=== PATIENT | female | born 1945 | race Caucasian/White ===

== ENCOUNTER 2016-10-29 06:06 | Day surgery (SDC) | payer MEDICARE, OTHER ==
[~2016-10-29] VITALS: Ht 165.1 cm; Wt 77.1 kg
[2016-10-29] MEDS ORDERED: ceFAZolin 1GM/50ML D5W 50 ML IV ONE (07:07)
[2016-10-29] MEDS ORDERED: fentaNYL CITRATE 100 MCG/2 ML VL ONE ×2 (07:18→08:57)
[2016-10-29] MEDS ORDERED: DEXAMETHASONE SOD PHOS 10MG/1ML VIAL INJ ONE (07:19)
[2016-10-29] MEDS ORDERED: LIDOCAINE HCL 2 %PF INJ 10ML AMP IJ ONE (07:19)
[2016-10-29] MEDS ORDERED: GLYCOPYRROLATE 0.2 MG/ML 1ML VIAL ONE (07:19)
[2016-10-29] MEDS ORDERED: KETOROLAC TROMETH 60MG/2ML VIAL IM ONE (07:19)
[2016-10-29] MEDS ORDERED: PROPOFOL 10 MG/ML 20 ML IV ONE (07:19)
[2016-10-29] MEDS ORDERED: ONDANSETRON HCL 4 MG/2 ML VIAL ONE (07:19)
[2016-10-29] MEDS ORDERED: MIDAZOLAM HCL 1MG/1ML-2 ML VIAL ONE (07:19)
[2016-10-29 08:23] LABS: INR 0.97 (0.9-1.15); Partial Thromboplastin Time 25.7 sec (22.64-33.71); Prothrombin Time 10.6 sec (9.37-12.3)
[2016-10-29] MEDS ORDERED: IPRATROPIUM BROM 0.5 MG/2.5ML INH SOL NEB ONE (08:45)
[2016-10-29] MEDS ORDERED: ALBUTEROL SULF 2.5 MG/0.5ML(0.5%) NEB SOLN NEB ONE (08:45)
[2016-10-29] MEDS ORDERED: IPRATROPIUM BROM 0.5 MG/2.5ML INH SOL ONE (08:52)
[2016-10-29] MEDS ORDERED: ALBUTEROL SULF 2.5 MG/0.5ML(0.5%) NEB SOLN ONE (08:52)
[2016-10-29] MEDS ORDERED: ONDANSETRON HCL 4 MG/2 ML VIAL IV ONE (09:30)
[2016-10-29] MEDS ORDERED: HYDROmorphone HCL 2 MG/ML VL IV PRN (09:30)
[2016-10-29] MEDS ORDERED: LABETALOL HCL 5 MG/ML 4ML SYRINGE IV PRN (09:30)
[2016-10-29 10:28] VITALS: BP 140/76
== END 2016-10-29 10:30 | disposition home or self-care (01) ==
LOC: SUR 06:06
PROVIDERS: ATTEND Urology
DX: D49.4 Neoplasm of unspecified behavior of bladder (principal); C67.9 Malignant neoplasm of bladder, unspecified; N13.39 Other hydronephrosis
CPT/HCPCS: 36415; 52240; 85610; 85730; 88307; 88341; 88342; J0690; J1100; J1885; J2250; J2405; J2704; J3010

== ENCOUNTER → 2016-12-24 | Day surgery (SDC) | payer MEDICARE, OTHER ==
[2016-12-21 11:54] LABS: Urine Bilirubin Negative (Negative); Urine Color Yellow (Yellow); Urine Glucose Normal (Normal); Urine Ketone Negative (Negative); Urine Nitrite Negative (Negative); Urine RBC 6 /hpf (0 - 4); Urine Squamous Epithelial Cell FEW /hpf (<5); Urine Urobilinogen Normal (Negative); Urine pH 5.5 (5.0-8.0)
[2016-12-21 11:55] LABS: Urine Blood 1+ /uL (Negative)
[2016-12-21 12:02] LABS: CONDITION Y; Hemoglobin 15.1 g/dL (12.2-16.2); White Blood Cell 10.2 10^3/uL (4.4-10.8)
[2016-12-21 12:12] LABS: Albumin 3.9 g/dL (3.4-5.0); Calcium 9.4 mg/dL (8.5-10.1)
[2016-12-21 12:15] LABS: BUN/Creatinine Ratio 17.4; Basophils # (auto) 0.1 uL; Basophils % (auto) 0.7 % (0.0-2.0); Eosinophils # (auto) 0.4 uL; Eosinophils % (auto) 3.8 % (0.0-7.0); Hematocrit 46.2 % (36.0-46.0); Lymphocytes # (auto) 2.7 uL; Lymphocytes % (auto) 26.2 % (10.0-50.0); Mean Corpuscular Hemoglobin 29.4 pg (28.0-32.0); Mean Corpuscular Hgb Conc. 32.6 g/dL (32.0-36.0); Mean Platelet Volume 10.4 fL (7.4-10.4); Monocytes # (auto) 0.6 uL; Monocytes % (auto) 5.5 % (0.0-12.0); Neutrophils # (auto) 6.5 uL; Neutrophils % (auto) 63.8 % (37.0-80.0); Platelet Count (auto) 339 10^3/uL (140-450); Red Cell Distribution Width 16.5 % (11.6-16.0)
[2016-12-21 12:17] LABS: Bilirubin, Total 0.5 mg/dL (0.2-1.0); Total Protein 8.2 g/dL (6.4-8.2)
[2016-12-21 12:21] LABS: INR 0.98 (0.9-1.15); Partial Thromboplastin Time 27.7 sec (22.64-33.71); Prothrombin Time 10.7 sec (9.37-12.3)
[~2016-12-24] VITALS: Ht 165.1 cm; Wt 76.2 kg
[~2016-12-24] MED LIST: ASPI81TA27 PO; BUPIVACAINE 0.25% INJ 50ML VIAL ONE; LIDOCAINE W/ EPINEPHRINE 1 % INJ 30ML ONE; LISI-706 PO; ceFOXitin 2GM/100ML D5W 100 ML IV ONE
[2016-12-24 12:04] VITALS: BP 142/90
== END | disposition home or self-care (01) ==
LOC: SUR 11:55
PROVIDERS: ATTEND Urology
DX: C67.2 Malignant neoplasm of lateral wall of bladder (principal); I10 Essential (primary) hypertension; B15.9 Hepatitis A without hepatic coma; Z90.710 Acquired absence of both cervix and uterus; Z98.51 Tubal ligation status; F17.200 Nicotine dependence, unspecified, uncomplicated; Z53.9 Procedure and treatment not carried out, unspecified reason
CPT/HCPCS: 36415; 80053; 81001; 85025; 85610; 85730; 86850; 86900; 86901; 87086; J0694; J3490

== ENCOUNTER 2016-12-30 06:00 | Inpatient (IN) | payer MEDICARE, OTHER ==
[2016-12-30] VITALS (13 sets, daily range): BP systolic 102–174; BP diastolic 62–88
[~2016-12-30] VITALS: Ht 165.1 cm; Wt 83.1 kg
[~2016-12-30 06:00] MED LIST changes: -BUPIVACAINE 0.25% INJ 50ML VIAL ONE; -LIDOCAINE W/ EPINEPHRINE 1 % INJ 30ML ONE; -ceFOXitin 2GM/100ML D5W 100 ML IV ONE
[2016-12-30] MEDS ORDERED: LIDOCAINE W/ EPINEPHRINE 1 % INJ 30ML ONE (06:51)
[2016-12-30] MEDS ORDERED: BUPIVACAINE 0.25% INJ 50ML VIAL ONE (06:51)
[2016-12-30] MEDS ORDERED: METHYLENE BLUE 0.5% 5MG/ML 10ml AMP IV ONE (06:52)
[2016-12-30] MEDS ORDERED: ceFAZolin 1GM/50ML D5W 50 ML IV ONE (07:12)
[2016-12-30] MEDS ORDERED: IPRATROPIUM BROM 0.5 MG/2.5ML INH SOL ONE (07:24)
[2016-12-30] MEDS ORDERED: ALBUTEROL SULF 2.5 MG/0.5ML(0.5%) NEB SOLN ONE (07:24)
[2016-12-30 07:27] LABS: Basophils # (auto) 0.1 uL; Basophils % (auto) 0.8 % (0.0-2.0); CONDITION Y; Eosinophils # (auto) 0.4 uL; Eosinophils % (auto) 4.8 % (0.0-7.0); Hematocrit 47.6 % (36.0-46.0); Hemoglobin 15.8 g/dL (12.2-16.2); Lymphocytes # (auto) 2.3 uL; Lymphocytes % (auto) 25.3 % (10.0-50.0); Mean Corpuscular Hgb Conc. 33.2 g/dL (32.0-36.0); Mean Corpuscular Volume 90.3 fL (80.0-100.0); Mean Platelet Volume 10.1 fL (7.4-10.4); Monocytes # (auto) 0.5 uL; Monocytes % (auto) 5.2 % (0.0-12.0); Neutrophils # (auto) 5.8 uL; Neutrophils % (auto) 63.9 % (37.0-80.0); Platelet Count (auto) 313 10^3/uL (140-450); Red Cell Distribution Width 15.9 % (11.6-16.0); SUSPECT SEE PRINTOUT
[2016-12-30] MEDS ORDERED: IPRATROPIUM BROM 0.5 MG/2.5ML INH SOL NEB ONE (07:30)
[2016-12-30] MEDS ORDERED: ALBUTEROL SULF 2.5 MG/0.5ML(0.5%) NEB SOLN NEB ONE (07:30)
[2016-12-30] MEDS ORDERED: PROPOFOL 10 MG/ML 20 ML IV ONE (07:36)
[2016-12-30] MEDS ORDERED: MIDAZOLAM HCL 1MG/1ML-2 ML VIAL ONE (07:36)
[2016-12-30] MEDS ORDERED: ROCURONIUM 10MG/ML 10ML VIAL IV ONE ×2 (07:36→09:26)
[2016-12-30 07:40] LABS: INR 0.99 (0.9-1.15); Partial Thromboplastin Time 27.1 sec (22.64-33.71); Prothrombin Time 10.8 sec (9.37-12.3)
[2016-12-30 07:49] LABS: Calcium 9.2 mg/dL (8.5-10.1); Potassium 3.9 mmol/L (3.5-5.1)
[2016-12-30] MEDS ORDERED: fentaNYL CITRATE 100 MCG/2 ML VL ONE ×3 (08:04→14:27)
[2016-12-30] MEDS ORDERED: ceFAZolin 1GM VL ONE ×2 (09:09→14:05)
[2016-12-30] MEDS ORDERED: MORPHINE SULF INJ 2 MG/ML SYRINGE 1ML IV PRN (09:30)
[2016-12-30] MEDS ORDERED: diphenhdrAMINE HCL 50 MG/1 ML VL IV PRN (09:30)
[2016-12-30] MEDS ORDERED: NITROGLYCERIN 0.4 MG SL TAB SL PRN (09:30)
[2016-12-30] MEDS ORDERED: PATIENTS OWN MEDICATION (Lisinopril & Hydrochlorothiazi (Zestoretic 20-12.5 mg) 1 TAB) PO SCH (10:00)
[2016-12-30] MEDS ORDERED: HCTZ 25 MG TAB PO SCH (10:00)
[2016-12-30] MEDS ORDERED: LISINOPRIL 20 MG TAB PO SCH (10:00)
[2016-12-30] MEDS ORDERED: PHENYLEPHRINE HCL 10 MG/ML VL ONE (10:21)
[2016-12-30] MEDS ORDERED: CONJ ESTROGENS 0.625MG/GM VAG CRM 30GM PV ONE (11:49)
[2016-12-30] MEDS ORDERED: ONDANSETRON HCL 4 MG/2 ML VIAL IV ONE (12:30)
[2016-12-30] MEDS ORDERED: HYDROmorphone HCL 2 MG/ML VL IV PRN (12:30)
[2016-12-30] MEDS ORDERED: NALOXONE HCL 0.4 MG/ML VIAL IV PRN (12:30)
[2016-12-30] MEDS ORDERED: hydrALAZINE HCL 20 MG/ML VL IV PRN (12:30)
[2016-12-30 13:00] LABS: Base Excess -1.8 mmol/L (-2.0-2.0); Blood 02Sat 98.9 % (96-100); Blood COHb 1.7 % (0.5-1.5); Blood MetHb 0.3 % (0.0-1.5); HHb 1.1 % (0.0-5.0); MODE VENT - A/C; O2Hb 96.9 % (94.0-97.0); PCO2 44.6 mmHg (35.0-45.0); PCO2(T) 44.6 mmHg (35.0-45.0); PO2 206.1 mmHg (80.0-100.0); PO2(T) 206.1 mmHg (80.0-100.0); Sample Type Arterial; pH 7.348 (7.350-7.450)
[2016-12-30 13:12] LABS: Allen Test No; Base Excess -3.6 mmol/L (-2.0-2.0); Blood 02Sat 98.9 % (96-100); Blood COHb 2.5 % (0.5-1.5); Blood MetHb 0.4 % (0.0-1.5); HCO3 21.5 mmol/L (22-26.0); HHb 1.1 % (0.0-5.0); MODE VENT - A/C; PCO2 39.3 mmHg (35.0-45.0); PCO2(T) 39.3 mmHg (35.0-45.0); PO2 204.7 mmHg (80.0-100.0); PO2(T) 204.7 mmHg (80.0-100.0); Sample Type Arterial; pH 7.356 (7.350-7.450)
[2016-12-30] MEDS ORDERED: METOCLOPRAMIDE HCL 5MG/ml INJ 2ml VIAL ONE (13:58)
[2016-12-30] MEDS ORDERED: ONDANSETRON HCL 4 MG/2 ML VIAL ONE (13:58)
[2016-12-30] MEDS ORDERED: NEOSTIGMINE 1 MG/ML INJ (10mg/10ML VIAL) ONE (14:01)
[2016-12-30] MEDS ORDERED: GLYCOPYRROLATE 0.2 MG/ML 1ML VIAL ONE ×2 (14:01→14:03)
[2016-12-30] MEDS: MEPERIDINE HCL (25 MG/ML) 1ML VIAL ONE ×2 (14:47→15:18)
[2016-12-30] MEDS: MEPERIDINE HCL (25 MG/ML) 1ML VIAL IV ONE ×2 (14:50→15:00)
[2016-12-30] MEDS ORDERED: METOPROLOL TARTRATE 1MG/1ML-5ML VIAL IV ONE (15:05)
[2016-12-30] MEDS ORDERED: METOPROLOL TARTRATE 1MG/1ML-5ML VIAL IV PRN (15:15)
[2016-12-30] MEDS: CEFOXITIN SODIUM 1 GM in D5W 5% 50 ML IV SCH ×2 (15:43→23:14)
[2016-12-30] MEDS: D5W/SOD CHL 0.45% 1,000 ML IV SCH ×2 (16:15→17:20)
[2016-12-30] MEDS: HYDROmorphone HCL 2 MG/ML VL IV PRN ×2 (17:53→23:45)
[2016-12-30] MEDS: LABETALOL HCL 5 MG/ML ML 20ML VIAL IV PRN ×2 (18:19→23:13)
[2016-12-31] VITALS (61 sets, daily range): BP systolic 0–133; BP diastolic 0–79
[2016-12-31] MEDS: D5W/SOD CHL 0.45% 1,000 ML IV SCH ×3 (04:21→11:00)
[2016-12-31] MEDS: HYDROmorphone HCL 2 MG/ML VL IV PRN ×5 (04:39→22:53)
[2016-12-31] MEDS: ONDANSETRON HCL 4 MG/2 ML VIAL IV PRN ×2 (04:39→22:53)
[2016-12-31 04:49] LABS: Albumin 2.5 g/dL (3.4-5.0); Bilirubin, Total 0.3 mg/dL (0.2-1.0); Calcium 7.8 mg/dL (8.5-10.1); Potassium 4.5 mmol/L (3.5-5.1); Total Protein 5.9 g/dL (6.4-8.2)
[2016-12-31 04:56] LABS: Basophils # (auto) 0 uL; Basophils % (auto) 0.2 % (0.0-2.0); CONDITION Y; Eosinophils # (auto) 0 uL; Eosinophils % (auto) 0.1 % (0.0-7.0); Hematocrit 37.6 % (36.0-46.0); Hemoglobin 12.4 g/dL (12.2-16.2); Lymphocytes # (auto) 1.5 uL; Lymphocytes % (auto) 9.5 % (10.0-50.0); Mean Corpuscular Hemoglobin 29.8 pg (28.0-32.0); Mean Corpuscular Volume 90.2 fL (80.0-100.0); Mean Platelet Volume 9.4 fL (7.4-10.4); Monocytes # (auto) 0.8 uL; Monocytes % (auto) 4.8 % (0.0-12.0); Neutrophils # (auto) 13.7 uL; Neutrophils % (auto) 85.4 % (37.0-80.0); Platelet Count (auto) 291 10^3/uL (140-450); Red Cell Distribution Width 15.9 % (11.6-16.0)
[2016-12-31] MEDS: CEFOXITIN SODIUM 1 GM in D5W 5% 50 ML IV SCH (06:36)
[2017-01-01] VITALS (7 sets, daily range): BP systolic 121–148; BP diastolic 67–90
[2017-01-01 05:43] LABS: Basophils # (auto) 0 uL; Basophils % (auto) 0.3 % (0.0-2.0); CONDITION Y; Eosinophils # (auto) 0.4 uL; Eosinophils % (auto) 2.4 % (0.0-7.0); Hematocrit 35.3 % (36.0-46.0); Hemoglobin 11.9 g/dL (12.2-16.2); Lymphocytes # (auto) 1.6 uL; Lymphocytes % (auto) 10.3 % (10.0-50.0); Mean Corpuscular Hemoglobin 30.1 pg (28.0-32.0); Mean Corpuscular Hgb Conc. 33.7 g/dL (32.0-36.0); Mean Corpuscular Volume 89.4 fL (80.0-100.0); Mean Platelet Volume 9.5 fL (7.4-10.4); Monocytes # (auto) 0.9 uL; Monocytes % (auto) 5.5 % (0.0-12.0); Neutrophils # (auto) 12.6 uL; Neutrophils % (auto) 81.5 % (37.0-80.0); Platelet Count (auto) 246 10^3/uL (140-450); Red Cell Distribution Width 16.2 % (11.6-16.0); White Blood Cell 15.5 10^3/uL (4.4-10.8)
[2017-01-01 05:58] LABS: Potassium 4.4 mmol/L (3.5-5.1)
[2017-01-01 06:05] LABS: BUN/Creatinine Ratio 14.8; Calcium 7.9 mg/dL (8.5-10.1)
[2017-01-01] MEDS: ACETAMINOPHEN/CODEINE#3 (300/30mg) TAB PO PRN (09:27)
[2017-01-01] MEDS: HYDROmorphone HCL 2 MG/ML VL IV PRN ×3 (09:33→18:50)
[2017-01-01] MEDS: D5W/SOD CHL 0.45% 1,000 ML IV SCH ×2 (12:37→22:40)
[2017-01-01] MEDS: ALBUTEROL SULF 2.5 MG/0.5ML(0.5%) NEB SOLN NEB SCH ×2 (19:08)
[2017-01-01] MEDS: IPRATROPIUM BROM 0.5 MG/2.5ML INH SOL NEB SCH ×2 (19:08)
[2017-01-02] MEDS: HYDROmorphone HCL 2 MG/ML VL IV PRN ×4 (02:44→22:20)
[2017-01-02] MEDS: D5W/SOD CHL 0.45% 1,000 ML IV SCH (05:00)
[2017-01-02 05:58] VITALS: BP 115/62
[2017-01-02] MEDS: ALBUTEROL SULF 2.5 MG/0.5ML(0.5%) NEB SOLN NEB SCH ×4 (06:03→19:12)
[2017-01-02] MEDS: IPRATROPIUM BROM 0.5 MG/2.5ML INH SOL NEB SCH ×4 (06:03→19:12)
[2017-01-02 06:16] LABS: Basophils # (auto) 0 uL; Basophils % (auto) 0.3 % (0.0-2.0); CONDITION Y; Eosinophils # (auto) 0.6 uL; Eosinophils % (auto) 3.7 % (0.0-7.0); Hematocrit 35.7 % (36.0-46.0); Hemoglobin 11.9 g/dL (12.2-16.2); Mean Corpuscular Hemoglobin 30.5 pg (28.0-32.0); Mean Corpuscular Hgb Conc. 33.5 g/dL (32.0-36.0); Mean Platelet Volume 10.3 fL (7.4-10.4); Monocytes # (auto) 0.8 uL; Neutrophils # (auto) 12.8 uL; Red Cell Distribution Width 15.6 % (11.6-16.0); SUSPECT SEE PRINTOUT; White Blood Cell 16.2 10^3/uL (4.4-10.8)
[2017-01-02 06:46] LABS: Potassium 4.4 mmol/L (3.5-5.1)
[2017-01-02 07:03] LABS: BUN/Creatinine Ratio 18.3; Calcium 8.3 mg/dL (8.5-10.1)
[2017-01-02 07:32] VITALS: BP 138/67
[2017-01-02 08:02] LABS: Platelet Count (auto) 241 10^3/uL (140-450)
[2017-01-02 13:00] VITALS: BP 139/86
[2017-01-02] MEDS: cefTRIAXone 1GM/50ML D5W 50 ML IV SCH (13:07)
[2017-01-02 16:18] VITALS: BP 159/93
[2017-01-02 22:00] VITALS: BP 148/70
[2017-01-03] MEDS: D5W/SOD CHL 0.45% 1,000 ML IV SCH ×2 (02:00→21:22)
[2017-01-03] MEDS: HYDROmorphone HCL 2 MG/ML VL IV PRN ×5 (03:52→21:11)
[2017-01-03 05:37] LABS: Basophils # (auto) 0.1 uL; Basophils % (auto) 0.8 % (0.0-2.0); CONDITION Y; Eosinophils # (auto) 0.7 uL; Eosinophils % (auto) 6.3 % (0.0-7.0); Hematocrit 32.3 % (36.0-46.0); Hemoglobin 10.8 g/dL (12.2-16.2); Lymphocytes # (auto) 1.4 uL; Lymphocytes % (auto) 12.9 % (10.0-50.0); Mean Corpuscular Hemoglobin 30.1 pg (28.0-32.0); Mean Corpuscular Hgb Conc. 33.5 g/dL (32.0-36.0); Mean Corpuscular Volume 89.6 fL (80.0-100.0); Mean Platelet Volume 9.6 fL (7.4-10.4); Monocytes # (auto) 0.6 uL; Monocytes % (auto) 5.2 % (0.0-12.0); Neutrophils # (auto) 8.2 uL; Neutrophils % (auto) 74.8 % (37.0-80.0); Platelet Count (auto) 253 10^3/uL (140-450); Red Cell Distribution Width 14.9 % (11.6-16.0)
[2017-01-03] MEDS: IPRATROPIUM BROM 0.5 MG/2.5ML INH SOL NEB SCH ×4 (05:56→18:13)
[2017-01-03] MEDS: ALBUTEROL SULF 2.5 MG/0.5ML(0.5%) NEB SOLN NEB SCH ×4 (05:57→18:13)
[2017-01-03 06:00] VITALS: BP 120/60
[2017-01-03] MEDS: cefTRIAXone 1GM/50ML D5W 50 ML IV SCH (08:32)
[2017-01-03 09:00] VITALS: BP 144/69
[2017-01-03 13:00] VITALS: BP 155/78
[2017-01-03 17:02] VITALS: BP 165/71
[2017-01-03] MEDS: LISINOPRIL 20 MG TAB PO SCH (17:31)
[2017-01-03] MEDS: HCTZ 25 MG TAB PO SCH (17:31)
[2017-01-03 23:04] VITALS: BP 154/87
[2017-01-04] VITALS (7 sets, daily range): BP systolic 131–165; BP diastolic 59–78
[2017-01-04] MEDS: HYDROmorphone HCL 2 MG/ML VL IV PRN ×5 (02:54→22:44)
[2017-01-04] MEDS: D5W/SOD CHL 0.45% 1,000 ML IV SCH (04:17)
[2017-01-04 06:35] LABS: Basophils # (auto) 0.1 uL; Basophils % (auto) 1.1 % (0.0-2.0); CONDITION Y; Eosinophils # (auto) 0.7 uL; Eosinophils % (auto) 7.1 % (0.0-7.0); Hematocrit 34.6 % (36.0-46.0); Hemoglobin 11.7 g/dL (12.2-16.2); Lymphocytes # (auto) 1.6 uL; Lymphocytes % (auto) 17.2 % (10.0-50.0); Mean Corpuscular Hemoglobin 30.3 pg (28.0-32.0); Mean Corpuscular Hgb Conc. 33.8 g/dL (32.0-36.0); Mean Corpuscular Volume 89.7 fL (80.0-100.0); Monocytes # (auto) 0.7 uL; Monocytes % (auto) 8.2 % (0.0-12.0); Neutrophils # (auto) 6.1 uL; Neutrophils % (auto) 66.4 % (37.0-80.0); Platelet Count (auto) 280 10^3/uL (140-450); Red Cell Distribution Width 15.4 % (11.6-16.0); White Blood Cell 9.1 10^3/uL (4.4-10.8)
[2017-01-04 06:58] LABS: BUN/Creatinine Ratio 15.5; Calcium 8.6 mg/dL (8.5-10.1); Potassium 3.5 mmol/L (3.5-5.1)
[2017-01-04] MEDS: ALBUTEROL SULF 2.5 MG/0.5ML(0.5%) NEB SOLN NEB SCH ×4 (07:17→19:38)
[2017-01-04] MEDS: IPRATROPIUM BROM 0.5 MG/2.5ML INH SOL NEB SCH ×4 (07:18→19:38)
[2017-01-04] MEDS: HCTZ 25 MG TAB PO SCH (09:15)
[2017-01-04] MEDS: cefTRIAXone 1GM/50ML D5W 50 ML IV SCH (09:15)
[2017-01-04] MEDS: LISINOPRIL 20 MG TAB PO SCH (09:15)
[2017-01-05] MEDS: HYDROmorphone HCL 2 MG/ML VL IV PRN ×2 (03:01→08:16)
[2017-01-05 05:30] VITALS: BP 129/71
[2017-01-05] MEDS: ALBUTEROL SULF 2.5 MG/0.5ML(0.5%) NEB SOLN NEB SCH ×2 (06:20→13:01)
[2017-01-05] MEDS: IPRATROPIUM BROM 0.5 MG/2.5ML INH SOL NEB SCH ×2 (06:20→13:01)
[2017-01-05 08:00] VITALS: BP 140/75
[2017-01-05] MEDS: cefTRIAXone 1GM/50ML D5W 50 ML IV SCH (09:21)
[2017-01-05] MEDS: LISINOPRIL 20 MG TAB PO SCH (09:23)
[2017-01-05] MEDS: HCTZ 25 MG TAB PO SCH (09:23)
[2017-01-05 12:57] LABS: Base Excess 1.3 mmol/L (-2.0-2.0); Blood 02Sat 86.9 % (96-100); Blood COHb 0.7 % (0.5-1.5); Blood MetHb 0.4 % (0.0-1.5); HCO3 25.5 mmol/L (22-26.0); MODE ROOM AIR; O2Hb 85.9 % (94.0-97.0); PCO2 38.9 mmHg (35.0-45.0); PCO2(T) 38.9 mmHg (35.0-45.0); PO2 53.7 mmHg (80.0-100.0); PO2(T) 53.7 mmHg (80.0-100.0); Sample Type Arterial; pH 7.434 (7.350-7.450)
[2017-01-05 13:00] VITALS: BP 127/60
[2017-01-05] MEDS: ACETAMINOPHEN/CODEINE#3 (300/30mg) TAB PO PRN (15:33)
[2017-01-05 15:49] VITALS: BP 127/60
== END 2017-01-05 18:58 | disposition home health service (06) | DRG 653 ==
LOC: SUR 06:00 → ICU WEST 06:01 → TELE-CENTR 01-01 00:31 → CENTRAL 01-02 09:39
PROVIDERS: ADMIT Urology; ATTEND Internal Medicine
PROC: 07BC4ZX Excision of Pelvis Lymphatic, Percutaneous Endoscopic Approach, Diagnostic (ICD-10-PCS; 2016-12-30)
PROC: 0T1847C Bypass Bilateral Ureters to Ileocutaneous with Autologous Tissue Substitute, Percutaneous Endoscopic Approach (ICD-10-PCS; 2016-12-30)
PROC: 0UT24ZZ Resection of Bilateral Ovaries, Percutaneous Endoscopic Approach (ICD-10-PCS; 2016-12-30)
PROC: 0DTB4ZZ Resection of Ileum, Percutaneous Endoscopic Approach (ICD-10-PCS; 2016-12-30)
PROC: 0UBG4ZZ Excision of Vagina, Percutaneous Endoscopic Approach (ICD-10-PCS; 2016-12-30)
PROC: 8E0W4CZ Robotic Assisted Procedure of Trunk Region, Percutaneous Endoscopic Approach (ICD-10-PCS; 2016-12-30)
PROC: 0T784DZ Dilation of Bilateral Ureters with Intraluminal Device, Percutaneous Endoscopic Approach (ICD-10-PCS; 2016-12-30)
PROC: 02HV33Z Insertion of Infusion Device into Superior Vena Cava, Percutaneous Approach (ICD-10-PCS; 2016-12-30)
PROC: 0TTB4ZZ Resection of Bladder, Percutaneous Endoscopic Approach (ICD-10-PCS; principal; 2016-12-30 07:30)
DX: C67.9 Malignant neoplasm of bladder, unspecified (principal); N17.0 Acute kidney failure with tubular necrosis; F17.200 Nicotine dependence, unspecified, uncomplicated; J44.9 Chronic obstructive pulmonary disease, unspecified; I10 Essential (primary) hypertension; Z90.6 Acquired absence of other parts of urinary tract; Z86.73 Personal history of transient ischemic attack (TIA), and cerebral infarction without residual deficits; Z98.51 Tubal ligation status; Z90.710 Acquired absence of both cervix and uterus; Z79.82 Long term (current) use of aspirin; Z79.899 Other long term (current) drug therapy
CPT/HCPCS: 36415; 36600; 71010; 76942; 80048; 80053; 82805; 82962; 85025; 85610; 85730; 86850; 86900; 86901; 87081; 94640; 97110; 97116; 97163; 97530; J0690; J0696; J2250; J2405; J2704; J3490; J7060

== ENCOUNTER 2017-01-07 22:27 | Emergency (ER) | payer MEDICARE, OTHER ==
[~2017-01-07] VITALS: Ht 165.1 cm; Wt 83.9 kg
[2017-01-08 00:09] LABS: Basophils # (auto) 0.3 uL; Basophils % (auto) 1.7 % (0.0-2.0); DEFINITIVE SEE PRINTOUT; Eosinophils # (auto) 1.2 uL; Eosinophils % (auto) 7.5 % (0.0-7.0); Hematocrit 37.2 % (36.0-46.0); Hemoglobin 12.1 g/dL (12.2-16.2); Lymphocytes # (auto) 2.3 uL; Lymphocytes % (auto) 14.6 % (10.0-50.0); Mean Corpuscular Hgb Conc. 32.6 g/dL (32.0-36.0); Mean Corpuscular Volume 89.1 fL (80.0-100.0); Mean Platelet Volume 9.5 fL (7.4-10.4); Monocytes # (auto) 0.9 uL; Monocytes % (auto) 5.7 % (0.0-12.0); Neutrophils # (auto) 10.9 uL; Neutrophils % (auto) 70.5 % (37.0-80.0); Platelet Count (auto) 354 10^3/uL (140-450); Red Cell Distribution Width 14.1 % (11.6-16.0); SUSPECT SEE PRINTOUT; White Blood Cell 15.6 10^3/uL (4.4-10.8)
[2017-01-08 00:19] LABS: Albumin 2.4 g/dL (3.4-5.0); BUN/Creatinine Ratio 17.3; Calcium 8.5 mg/dL (8.5-10.1); Potassium 3.7 mmol/L (3.5-5.1)
[2017-01-08 00:22] LABS: Bilirubin, Total 0.4 mg/dL (0.2-1.0)
[2017-01-08 00:23] LABS: INR 0.95 (0.9-1.15); Partial Thromboplastin Time 25.7 sec (22.64-33.71); Prothrombin Time 10.4 sec (9.37-12.3)
[2017-01-08 02:08] VITALS: BP 131/76
== END 2017-01-08 02:12 | disposition home or self-care (01) ==
LOC: ER 22:45
DX: Z48.01 Encounter for change or removal of surgical wound dressing (principal); T83.198A Other mechanical complication of other urinary devices and implants, initial encounter; J44.9 Chronic obstructive pulmonary disease, unspecified; I12.9 Hypertensive chronic kidney disease with stage 1 through stage 4 chronic kidney disease, or unspecified chronic kidney disease; N18.9 Chronic kidney disease, unspecified; Z86.73 Personal history of transient ischemic attack (TIA), and cerebral infarction without residual deficits; Z79.82 Long term (current) use of aspirin
CPT/HCPCS: 36415; 80053; 85025; 85610; 85730; 87040; 93005